=== PATIENT | male | born 1990 | race Caucasian/White ===

== ENCOUNTER 2018-05-18 20:29 | Emergency (ER) | payer OTHER ==
[2018-05-18 20:36] VITALS: BP 123/85
--- NOTE | 2018-05-18 21:04 | ED Physician Documentation ---
History of Present Illness - Stated complaint Stated Complaint: POSS PRESSURE EXPOSURE - Chief complaint Chief Complaint: General - History obtained from History obtained from: Patient - History of Present Illness Timing: Today ([place], [place] on the [employer] inside the canopy and there was a brief overpressure. It lasted only a second or two. Per the report that accompanies him they went down 1200 feet elevation but only for a second or 2. It was equivalent to 0.65PSI. His ears popped but he feels fine without residual ear problems or shortness of breath.) Review of Systems Eyes: denies: Loss of vision, Decreased vision Ears: denies: Loss of hearing, Ear pain Nose: denies: Rhinorrhea / runny nose, Congestion Respiratory: denies: Dyspnea, Cough PD PAST MEDICAL HISTORY - Past Medical History Past Medical History: No - Past Surgical History Past Surgical History: No - Allergies Allergies/Adverse Reactions: Allergies Allergy/AdvReac Type Severity Reaction Status Date / Time No Known Drug Allergies Allergy Verified 05/18/18 20:36 - Social History Does the pt smoke?: No Smoking Status: Never smoker Does the pt drink ETOH?: Yes ETOH Use: Beer Does the pt have substance abuse?: No - Immunizations Immunizations are current?: Yes PD ED PE NORMAL - Vitals Vital signs reviewed: Yes - General General: Alert and oriented X 3, No acute distress - HEENT HEENT: Ears normal - Cardiac Cardiac: RRR, No murmur - Respiratory Respiratory: No respiratory distress, Clear bilaterally - Abdomen Abdomen: Non tender - Neuro Neuro: Alert and oriented X 3, Normal speech Results - Vitals Vitals: Vital Signs - 24 hr 05/18/18 20:31 Temperature 36.5 C Heart Rate 75 Respiratory 16 Rate Blood Pressure 123/85 H O2 Saturation 99 PD MEDICAL DECISION MAKING - Sepsis Event Vital Signs: Vital Signs - 24 hr 05/18/18 20:31 Temperature 36.5 C Heart Rate 75 Respiratory 16 Rate Blood Pressure 123/85 H O2 Saturation 99 Departure - Departure Disposition: 01 Home, Self Care Clinical Impression: Altitude sickness prophylaxis Condition: Good Record reviewed to determine appropriate education?: Yes Comments: Your blood pressure was elevated today on check into the emergency department. This does not mean that you have hypertension, it is a common phenomenon to come to the emergency department and have elevated blood pressure. I recommend that you see your primary care physician within the week to have it rechecked when you are feeling better.
== END 2018-05-18 21:16 | disposition home or self-care (01) ==
LOC: ED 20:29
DX: T70.29XA Other effects of high altitude, initial encounter (principal); X58.XXXA Exposure to other specified factors, initial encounter; Y99.0 Civilian activity done for income or pay; R03.0 Elevated blood-pressure reading, without diagnosis of hypertension
CPT/HCPCS: 99282

== ENCOUNTER 2018-05-26 20:28 | Emergency (ER) | payer OTHER ==
[2018-05-26 20:36] VITALS: BP 128/78
--- NOTE | 2018-05-26 20:47 | ED Physician Documentation ---
History of Present Illness - Stated complaint Stated Complaint: POSS PRESSURE SICKNESS - Chief complaint Chief Complaint: General - History obtained from History obtained from: Patient - History of Present Illness Timing: Today (He is a [place]. I saw him a week ago as he was involved in overpressure incident. He had no injuries then. He had a single similar episode this evening. They were in the cockpit and a brief overpressure occurred. He feels fine.) Review of Systems Constitutional: denies: Fever, Chills Ears: denies: Loss of hearing, Ear pain, Drainage/discharge Nose: denies: Rhinorrhea / runny nose, Congestion Respiratory: denies: Dyspnea, Cough PD PAST MEDICAL HISTORY - Past Surgical History Past Surgical History: No - Present Medications Home Medications: Ambulatory Orders Medication Instructions Recorded Confirmed No Known Home Medications 05/26/18 05/26/18 - Allergies Allergies/Adverse Reactions: Allergies Allergy/AdvReac Type Severity Reaction Status Date / Time No Known Drug Allergies Allergy Verified 05/26/18 20:36 - Social History Does the pt smoke?: No Smoking Status: Never smoker Does the pt drink ETOH?: Yes Does the pt have substance abuse?: No - Immunizations Immunizations are current?: Yes PD ED PE NORMAL - Vitals Vital signs reviewed: Yes - General General: Alert and oriented X 3, No acute distress - HEENT HEENT: Ears normal - Cardiac Cardiac: RRR, No murmur - Respiratory Respiratory: No respiratory distress, Clear bilaterally - Abdomen Abdomen: Non tender - Neuro Neuro: Alert and oriented X 3, Normal speech Results - Vitals Vitals: Vital Signs - 24 hr 05/26/18 20:33 Temperature 36.6 C Heart Rate 74 Respiratory 16 Rate Blood Pressure 128/78 O2 Saturation 100 Oxygen O2 Source Room air PD MEDICAL DECISION MAKING - Sepsis Event Vital Signs: Vital Signs - 24 hr 05/26/18 20:33 Temperature 36.6 C Heart Rate 74 Respiratory 16 Rate Blood Pressure 128/78 O2 Saturation 100 Oxygen O2 Source Room air Departure - Departure Disposition: 01 Home, Self Care Clinical Impression: Altitude sickness prophylaxis Condition: Good Record reviewed to determine appropriate education?: Yes Comments: Return if worse or if new symptoms develop. Follow-up with your physician as needed.
== END 2018-05-26 20:52 | disposition home or self-care (01) ==
LOC: ED 20:28
DX: T70.20XA Unspecified effects of high altitude, initial encounter (principal); W94.11XA Exposure to residence or prolonged visit at high altitude, initial encounter; Y99.0 Civilian activity done for income or pay
CPT/HCPCS: 99282